=== PATIENT | male | born 1955 | race Caucasian/White ===

== ENCOUNTER 2019-10-25 11:52 | Emergency (ER) | payer OTHER ==
[~2019-10-25] VITALS: Ht 180.3 cm; Wt 126.1 kg
[2019-10-25] MEDS ORDERED: BENA20 PO (12:03)
[2019-10-25] MEDS ORDERED: Imitrex25 MG PO (13:37)
== END 2019-10-25 13:57 | disposition home or self-care (01) ==
LOC: ER 11:52
DX: G44.009 Cluster headache syndrome, unspecified, not intractable (principal); Z79.899 Other long term (current) drug therapy
CPT/HCPCS: 96361; 96374; 96375; 99283-25; J0780; J1200; J1885; J7030